=== PATIENT | male | born 1980 | race Caucasian/White ===

== ENCOUNTER 2022-09-20 00:52 | Emergency (ER) | payer SELFPAY ==
[2022-09-20 00:57] VITALS: BP 136/72; PULSE 63; RESP 16; TEMP 36.7; O2SAT 99
--- NOTE | 2022-09-20 01:02 | XRR_ITS ---
PROCEDURE INFORMATION: Exam: XR Chest Exam date and time: 09/20/2022 1:11 AM Age: 41 years old Clinical indication: Pain; Right-sided; Patient HX: C/O RT sided rib discomfort. No injury. ; Additional info: Rib pain TECHNIQUE: Imaging protocol: Radiologic exam of the chest. Views: 1 view. COMPARISON: CR XR ribs RT 2V* [id number] 07/25/2017 11:41 AM FINDINGS: Lungs: There is no consolidation. There are high density nodules in the left upper lobe suggesting calcified granulomas. Pleural spaces: There is no pleural effusion or pneumothorax. Heart/Mediastinum: Cardiomediastinal contours are unremarkable. Bones/joints: Bones are unremarkable. XR/XR chest 1V portable [id number] IMPRESSION: No acute findings.
--- NOTE | 2022-09-20 01:08 | ED_ITS ---
HPI - General Adult General: Chief complaint: General Medical Stated complaint: Rib pain on Right side Time Seen by Provider: 09/20/22 00:57 Source: patient Mode of arrival: ambulatory Limitations: no limitations History of Present Illness: 41-year-old male who states that over the last couple days has been having sharp pains in the right side of his chest he states is much worse with movement or palpation. States pain is sharp in nature arrival lower chest he rates it a 7 out of 10 denies any shortness of breath denies any cough denies any fever Associated symptoms: Reports chest pain; Deny dyspnea, headache(s), nausea, rash or vomiting Review of Systems Const: Denies: fever(s), chills, body aches or change in appetite Eyes: Denies: blurry vision or eye discomfort ENMT: Denies: throat pain or dental pain Card: Reports: chest pain Resp: Denies: dyspnea GI: Denies: abdominal pain, nausea, vomiting or diarrhea : Denies: dysuria Musc: Denies: neck pain or back pain Skin/Breast: Denies: rash Neuro: Denies: headache(s) Psych: Denies: depression Devendra/Lymph: Denies: easy bruising All/Imm: Denies: urticaria PFSH ED PFSH: Medical History (Updated 09/20/22 @ 01:18 by Rylan Naylor MD) No pertinent past medical history Social History (Updated 09/20/22 @ 01:08 by Rylan Naylor MD) Substance/Drug Use: unknown Physical Exam Const: COMMON NORMALS: no acute distress, patient oriented x3 and healthy appearing HENMT: COMMON NORMALS: normocephalic and atraumatic HEAD & SCALP: normocephalic and atraumatic Eye: COMMON NORMALS: Equal, round and reactive pupils present and EOMs intact bilaterally PUPIL: Yes Equal, round and reactive pupils present Neck/C-Spine: COMMON NORMALS: full ROM and supple Chest: COMMONS NORMALS: normal inspection of the chest OTHER: point tender over right chest Resp: COMMON NORMALS: normal respiratory effort, No retractions, No use of a ccessory muscles and clear to auscultation bilaterally AUSCULTATION: clear to auscultation bilaterally Cardio: COMMON NORMALS: regular rate, regular rhythm and No murmurs present (Cardio) RATE: regular rate RHYTHM: regular rhythm GI: COMMON NORMALS: Normal to inspection, nondistended, normoactive bowel sounds present, Soft to palpation, non-tender and no masses PALPATION: Yes Soft to palpation Extremity: COMMON NORMALS: normal to inspection and full ROM Neuro: COMMON NORMALS: patient oriented x3, moves all extremities and no focal motor deficits Psych: COMMON NORMALS: mental status grossly normal, Normal thought process present and cooperative THOUGHT PROCESS: Normal thought process present Skin: COMMON NORMALS: no rashes or lesions noted and no wounds GENERAL SKIN EXAM: no rashes or lesions noted Course Vital Signs: Vital signs: Vital Signs Temperature 98.0 F 09/20/22 00:57 Pulse Rate 63 09/20/22 00:57 Respiratory Rate 16 09/20/22 00:57 Blood Pressure 136/72 09/20/22 00:57 Pulse Oximetry 99 09/20/22 00:57 Oxygen Delivery Me thod 09/20/22 00:57 MDM - General Adult Medical Decision Making Patient presents here with chest pain likely chest wall pain as he is point tender his EKG and x-ray are normal he is stable for discharge we will place him on Naprosyn Robaxin he is to follow-up with PCP and return if worsening. EKG Data EKG 1: I personally reviewed and interpreted this EKG as follows: EKG interpretation date: 09/20/22 EKG interpretation time: 01:10 Interpretation: sinus eloy hr [address] or t wave abnormalities qrs 102 qtc 400 Discharge Plan Discharge Patient Disposition: Home Clinical Impression: Chest wall pain Prescriptions: New methocarbamol 750 mg tablet 750 mg PO Q6H PRN (Reason: spasms) Qty: 20 0RF Naprosyn 500 mg tablet 500 mg PO BID PRN (Reason: pain) Qty: 20 0RF Discharge Orders: Discharge ED (Routine); Ordered 09/20/22 Ordered By: Rylan Naylor Referrals: James Bradley DO [Primary Care Provider] - 1-3 days Discharge Diet: Advance as tolerated Discharge Activity: Resume usual activity Patient Instructions: Chest Pain - Chest Wall Coding Level of Care Code ED Program And Research Coordinator for Chg Fwd Exam Comprehensive
--- NOTE | 2022-09-20 01:10 | ECG_ITS ---
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 Measurements Intervals [place] Rate: 54 P: 89 NV: 156 QRS: 71 QRSD: 102 T: 83 QT: 414 QTc: 394 Interpretive Statements SINUS BRADYCARDIA WITH SINUS ARRHYTHMIA SEPTAL MYOCARDIAL INFARCTION , PROBABLY OLD [40+ ms Q WAVE IN V1/V2] No previous ECG available for comparison Electronically Signed On 09-20-2022 21:42:48 CDT by Porsche Serra M.D. [id number]
[2022-09-20] MEDS: HYDROcodone-acetaminophen 5-325 mg Tablet 1 TAB PO (01:13)
[2022-09-20 01:30] VITALS: BP 105/47; PULSE 52; RESP 16; O2SAT 96
[2022-09-20 01:37] VITALS: BP 105/47; PULSE 52; RESP 16; O2SAT 96
== END 2022-09-20 01:38 | disposition home or self-care (01) ==
PROVIDERS: Emergency Provider Emergency Medicine; PCP Family Medicine
DX: R07.89 Other chest pain (principal)
CPT/HCPCS: 71045; 93005; 99284